=== PATIENT | female | born 1955 | race Caucasian/White ===

== ENCOUNTER 2016-09-10 00:01 | Inpatient (IN) | payer OTHER ==
--- NOTE | ~2016-09-10 | CN ---
Consultation Report [facility] [address] [place]. [address] NAME: ANN MARIE GRIMES : 55 STATUS : ADM Gail PAT#: [id number] AGE: 60 ADM/REG DATE : 09/10/16 MR#: [id number] REPORT SERV DATE: 09/10/16 DICTATED BY: DATE: REPORT STATUS : Draft TRANSCRIBED BY: MODL DATE: 09/10/16 INTERNAL MEDICINE CONSULT DATE OF CONSULTATION: 09/10/2016 The patient is admitted to Dr. Dejon Mcdonald of Orthopedics. He is the requesting physician. Senior Datastage Developer is Dr. Riley Minaya of the Hospitalist Service. REASON FOR CONSULT: "Hematuria and polyuria." HISTORY OF PRESENT ILLNESS: Ms Grimes is a pleasant 60-year-old white female, in excellent health, with no past medical history and essentially minimal past surgical history, who sustained a mechanical fall while walking down her stairs on 09/09/2016 resulting in a right trimalleolar fracture. She is postoperative day #0 from repair. Reportedly, while in preop holding area, was utilizing a bed dubose and the preop nurse noted that her urine may have had a pink discoloration to her. The nurse inquired whether the patient had been on her cycle recently and the patient has not. Thus, a request is made for evaluation of hematuria and polyuria. The patient denies any polyuria presently, although felt several weeks ago that she was having some frequency and felt that she might have had a urinary tract infection at that point in time. She drank copious amounts of water and the frequency resolved at that time. She did not have any dysuria, suprapubic pain, flank pain, fevers, or odor at that time. She reports that she had her annual physical with primary care provider, Dr. Hua Cisneros, afterwards and stated that all of her blood work and a urine sample were normal at that time. Presently, she denies any abdominal pain or dysuria. She has not had any fevers. She has no known history of kidney stones and does not have frequent urinary tract infections. REVIEW OF SYSTEMS: Full 14-point review of systems is negative except as dictated in the history of present illness. PAST MEDICAL HISTORY: None. PAST SURGICAL HISTORY: Includes tubal ligation, tonsillectomy as a child, and trimalleolar fracture repair today. ALLERGIES: NO KNOWN DRUG ALLERGIES. ALTHOUGH SHE AVOIDS SUDAFED BECAUSE IT GIVES HER PALPITATIONS. HOME MEDICATIONS: 1. Acetaminophen 1000 mg p.o. daily as needed for headache. 2. Vitamin C 1000 mg p.o. daily. 3. Aspirin 81 mg p.o. daily-currently held. 4. Zyrtec 10 mg p.o. daily. Consultation Report [address] [place]. [address] NAME: ANN MARIE GRIMES : 55 STATUS : ADM Gail PAT#: [id number] AGE: 60 ADM/REG DATE : 09/10/16 MR#: [id number] REPORT SERV DATE: 09/10/16 DICTATED BY: DATE: REPORT STATUS : Draft TRANSCRIBED BY: TUNG DATE: 09/10/16 5. Vitamin D3 of 1000 units p.o. daily. 6. Multivitamin one tablet p.o. daily. 7. AdvoCare joint supplement three tablets p.o. daily. 8. Topton-3 two caps p.o. daily. 9. Calcium fapy-dts-nadfmnn two tabs p.o. daily. 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 She denies any history of tobacco, alcohol, or illicit substances. FAMILY HISTORY: Pertinent for myocardial infarction in her father at the age of 52, who subsequently lived into his 80s and of complications related to a stroke. Her mother is in good health and still independent. PHYSICAL EXAMINATION: VITAL SIGNS: Temperature 98.3, pulse 82, respirations 18, oxygen saturations 98% on room air, and blood pressure is 133/72. GENERAL: This is a well-developed, well-nourished white female, in no acute distress. Alert and oriented in three dimensions. Her at the bedside. HEENT: Normocephalic, atraumatic. Pupils are equally round and reactive to light. No icterus. No pallor. No sinus tenderness to palpation. No nasal drainage. Oropharynx moist and pink. NECK: Supple with no jugular venous distention. No lymphadenopathy. No bruits. CARDIOVASCULAR: Regular rate and rhythm. No murmurs, rubs or gallops. LUNGS: Clear to auscultation bilaterally. No wheezes, crackles, nor rhonchi. ABDOMEN: Soft, nontender, and nondistended with normoactive bowel sounds in four quadrants. No hepatosplenomegaly. No suprapubic tenderness to palpation. EXTREMITIES: No cyanosis, clubbing, or edema. DATA: CBC from this morning shows white blood cell count of 11, hemoglobin 14.5, hematocrit 42.8, platelets 216. Coagulation studies were normal. Sodium 142, potassium 4.0, chloride 107, bicarb 28, BUN 20, creatinine 1.1, glucose 119, calcium 9.6. IMAGIN. Plain films of the right ankle demonstrated trimalleolar fracture, dislocation of the right ankle. 2. Portable chest x-ray, 09/10/2016, no acute process demonstrated radiographically. IMPRESSION: 1. Observed "pink tinged" urine-question hematuria. 2. Possible polyuria-the patient denies presently, but did experience several weeks ago, with resolution and normal urinalysis since. 3. Leukocytosis. 4. Constipation-the patient is requesting stool softener. PLAN: Consultation Report [address] [address] NAME: ANN MARIE GRIMES : 55 STATUS : ADM Gail PAT#: [id number] AGE: 60 ADM/REG DATE : 09/10/16 MR#: [id number] REPORT SERV DATE: 09/10/16 DICTATED BY: DATE: REPORT STATUS : Draft TRANSCRIBED BY: TUNG DATE: 09/10/16 1. Check urinalysis to rule out UTI. Treat with empiric antibiotics if indicated. 2. Aspirin has been appropriately held postoperatively. 3. Colace and MiraLAX have been prescribed. 4. There is no present indication for imaging-follow up urinalysis results. If a significant amount of hematuria, without leukocytes in the urine, would consider KUB to evaluate for nephrolithiasis versus Outpatient Urology evaluation for cystitis. EMILEE/TUNG Riley Minaya M.D. / [id number] CC: MD Erlin Gutiérrez Jr., M.D.
--- NOTE | ~2016-09-10 | OP ---
Record Of Operation [facility] [address] [place]. [address] NAME: ANN MARIE GRIMES : 55 STATUS : ADM Gail PAT#: [id number] AGE: 60 ADM/REG DATE : 09/10/16 MR#: [id number] REPORT SERV DATE: 09/11/16 DICTATED BY: SINDI SARMIENTO DATE: 09/10/16 REPORT STATUS : Draft TRANSCRIBED BY: MODCastro DATE: 09/10/16 DATE OF PROCEDURE: 09/10/2016 PREOPERATIVE DIAGNOSIS: Right ankle trimalleolar fracture dislocation. POSTOPERATIVE DIAGNOSIS: Right ankle trimalleolar fracture dislocation. PROCEDURE: Open reduction and internal fixation of right ankle trimalleolar fracture. ANESTHESIA: General. COMPLICATIONS: None. LUMBER TYING MACHINE OPERATOR: Abdulaziz, surgical music assistant. INDICATION FOR OPERATION: Ann Marie Grimes is a pleasant 60-year-old female, suffered the above-mentioned injury early in the morning on 09/10/2016, while descending three carpeted steps. Risks and benefits of surgical intervention were discussed at length with the patient. All of her questions were answered. She wished to proceed. Ann Marie was brought back to operating room where sedation was performed and a right sciatic nerve block and popliteal fossa was performed by the surgeon with insulated needle and nerve stimulator. Saphenous nerve block proximal to the incision was performed. Right lower extremity was prepped and draped in the usual sterile fashion. Esmarch exsanguination was utilized and a well-padded thigh tourniquet was inflated. Longitudinal incision was made over the lateral aspect of the distal fibula. Blunt dissection was used to protect local neurovascular structures. Limited subperiosteal dissection was used to expose the fracture. This was a highly unstable fracture. Copious irrigation and aspiration of the hematoma was performed. Next, we chose to open the medial side. An incision was made. Blunt dissection was used to protect local neurovascular structures. Limited subperiosteal dissection was used to expose the medial malleolar fracture. We aspirated and irrigated the hematoma. We opened the joint through the medial side. With the instability that was present, we had excellent visualization of the tibiotalar articular surfaces. She had some scuffing on the medial talar dome. There was small bony and cartilaginous fragments which were removed. The joint was copiously really irrigated multiple times under direct visualization. The posterior malleolar piece appeared relatively small. At the conclusion of the case, we returned to the lateral side where a short oblique fracture was visualized with an anterior butterfly fragment. Due to the comminution, it was not possible to perform lag screw fixation of the main distal fragment. There was a 2nd anterior piece that was attached to the syndesmotic ligaments. This was reduced anatomically and fixed from front to back with a 2.7 mm cortical screw. Next, we chose an Arthrex distal fibular plate. Combination of locking and nonlocking screws were used to secure the plate to the bone. Next, we returned to the medial side where an anatomic reduction of the medial malleolus was performed. Two Arthrex 4.0 mm cannulated screws were placed. Each achieved excellent bone purchase. Final FluoroScan imaging documented AP mortise and lateral views of the ankle. Imaging confirmed acceptable position of the hardware as well as the fractures. Images were printed and Record Of Operation [address] [address] NAME: ANN MARIE GRIMES : 55 STATUS : ADM Gail PAT#: [id number] AGE: 60 ADM/REG DATE : 09/10/16 MR#: [id number] REPORT SERV DATE: 09/11/16 DICTATED BY: SINDI SARMIENTO DATE: 09/10/16 REPORT STATUS : Draft TRANSCRIBED BY: TUNG DATE: 09/10/16 saved. Ankle is stable to stress examination. Copious irrigation was repeated. Deep tissue was closed over the hardware were appropriate with interrupted 2-0 Vicryl suture. Subcutaneous tissues and skin were closed in typical fashion. Bulky sterile dressings were applied. A well-padded posterior splint was placed. The patient did well throughout the case. She awoke in the operating room and was transferred to the recovery room in satisfactory condition. MARYAMB/TUNG Sindi Sarmiento MD / [id number] CC: MD Erlin Gutiérrez Jr., M.D.
--- NOTE | ~2016-09-10 | HP ---
History And Physical [facility] [id number] [place]. [address] NAME: ANN MARIE GRIMES : 55 STATUS : ADM Gail PAT#: [id number] AGE: 60 ADM/REG DATE : 09/10/16 MR#: [id number] REPORT SERV DATE: 09/11/16 DICTATED BY: SINDI SARMIENTO DATE: 09/10/16 REPORT STATUS : Draft TRANSCRIBED BY: MODCastro DATE: 09/10/16 DATE OF ADMISSION: 09/10/2016 CHIEF COMPLAINT: Right ankle fracture dislocation. HISTORY OF PRESENT ILLNESS: I was called by the emergency department to evaluate Ann Marie Grimes. Ann Marie is a pleasant 60-year-old female, who was walking down some steps today where she slipped and fell on the carpet, she suffered the above-mentioned injury. Her made an attempt to reduce the dislocated ankle. She was brought to the emergency room where she was diagnosed with an unstable ankle fracture. She denies associated injuries to include head injury or loss consciousness. She denied injury to her bilateral upper extremities, her left lower extremity. No complaints of back pain or pelvic pain. REVIEW OF SYSTEMS: The patient was in her usual state of health at the time of the evaluation. She denies fevers, chills, nausea, vomiting, abdominal pain, shortness of breath, or chest pain. She did admit to some hematuria and polyuria. PAST MEDICAL HISTORY: None. MEDICATIONS: Tylenol, vitamin C, 81 mg daily aspirin, Zyrtec, vitamin D, joint supplement, omega-3 [id number], and calcium over-the- counter. ALLERGIES: PSEUDOEPHEDRINE. PAST SURGICAL HISTORY: Prior surgeries are tonsillectomy, tubal ligation 1988, and wisdom teeth extraction. SOCIAL HISTORY: She is evaluated with supportive . She denies use of alcohol or tobacco products. PHYSICAL EXAMINATION: GENERAL: Reveals an age-appropriate healthy-appearing female, in mild distress secondary to right ankle discomfort. She is alert and oriented x3. HEENT: Pupils equal to light and reactive. Head atraumatic. CERVICAL SPINE: Nontender to gentle range of motion. CHEST: Nonlabored breathing. HEART: Regular rate. ABDOMEN: Nondistended. EXTREMITIES: Bilateral upper extremities, no tenderness with gentle range of motion. Left lower extremity, no tenderness with gentle range of motion. Right lower extremity has unstable ankle fracture. SKIN: Intact. History And Physical [address] [place]. [address] NAME: ANN MARIE GRIMES : 55 STATUS : ADM Gail PAT#: [id number] AGE: 60 ADM/REG DATE : 09/10/16 MR#: [id number] REPORT SERV DATE: 09/11/16 DICTATED BY: SINDI SARMIENTO DATE: 09/10/16 REPORT STATUS : Draft TRANSCRIBED BY: TUNG DATE: 09/10/16 NEUROVASCULAR: Grossly normal. X-RAYS: Three views of the right ankle show a right trimalleolar ankle fracture dislocation. PLAN: Lengthy discussion with the patient regarding her diagnosis and treatment options. We discussed open reduction and internal fixation with the patient. All of her questions were answered and she wished to proceed. We will proceed with ORIF of the right ankle. We will plan for discharge tomorrow morning (09/11/2016). We will ask the hospitalist to evaluate the patient due to her complaints of polyuria and hematuria. We will discharge her once cleared by Physical Therapy. We will evaluate her tomorrow as well as the hospitalist. Please feel free to call me on my cell phone at [phone] with additional questions or concerns. JUANI/TUNG Sindi Sarmiento MD / [id number] CC: MD Erlin Gutiérrez Jr., M.D.
[2016-09-10] MEDS ORDERED: MULTIVIT/MIN PO (01:00)
[2016-09-10] MEDS ORDERED: VITC500 PO (01:00)
[2016-09-10] MEDS ORDERED: [UNRECOGNIZED DRUG - OTHER] PO (01:00)
[2016-09-10] MEDS ORDERED: ZYRTEC ALLGY10 MG PO (01:01)
[2016-09-10] MEDS ORDERED: ASAB PO (01:01)
[2016-09-10] MEDS ORDERED: VITAMIN D31000 UNIT PO (01:02)
[2016-09-10] MEDS ORDERED: OMEGA-3 OTC PO (01:02)
[2016-09-10] MEDS ORDERED: CALCIUM OTC PO (01:02)
[2016-09-10] MEDS ORDERED: ACET500CAP PO (01:03)
[2016-09-10 01:52] LABS: BASOPHILS 0.4 %; BASOPHILS ABSOLUTE 0.04 10/3/uL (0.0-0.16); EOSINOPHILS 1.2 %; EOSINOPHILS ABSOLUTE 0.13 10/3/uL (0.0-0.53); HEMATOCRIT 42.8 % (36.0-48.0); HEMOGLOBIN 14.5 g/dL (12.0-16.0); IMMATURE GRANULOCYTES 0.3 %; IMMATURE GRANULOCYTES ABSOLUTE 0.03 10/3/uL (0.0-0.11); LYMPHOCYTES 19.1 %; LYMPHOCYTES ABSOLUTE 2.09 10/3/uL (0.67-4.30); MEAN CORPUS HGB CONC 33.9 g/dL (32.0-36.0); MEAN CORPUSCULAR HEMOGLOB 31.2 pg (26.0-34.0); MEAN PLATELET VOLUME 11.5 fL (9.2-13.0); MONOCYTES 5.2 %; MONOCYTES ABSOLUTE 0.57 10/3/uL (0.21-1.20); NEUTROPHILS 73.8 %; NEUTROPHILS ABSOLUTE 8.09 10/3/uL (2.02-8.40); PLATELET COUNT 216 10/3/uL (150-400); RBC DISTRIBUTION WIDTH 12.5 % (12.0-16.0); RED CELL COUNT 4.65 10/6/uL (4.0-5.6)
[2016-09-10 02:02] LABS: PARTIAL THROMBO TIME 27.5 SEC (22.5-37.2); PROTIME (NOT ORD) 13.2 SEC (12.0-14.5)
[2016-09-10 02:04] LABS: ER CBC TAT 0 Hrs 04 MinsNP; MANUAL DIFF NO %
[2016-09-10 02:05] LABS: BUN (BLOOD UREA NITROGEN) 20 MG/DL (6-23); CALCIUM, SERUM 9.6 MG/DL (8.5-10.4); CHLORIDE, SERUM 107 MMOL/L (96-112); CO2 (CARBON DIOXIDE) 28 MMOL/L (24-34); GFR AFRICAN AMERICAN 63 ML/MIN (>=60); GFR NON AFRICAN AMERICAN 55 ML/MIN (>=60); GLUCOSE, SERUM 119 MG/DL (60-99); SODIUM, SERUM 142 MMOL/L (135-148)
[2016-09-10 21:44] LABS: ASCORBIC ACID (UR NOT ORDER) NEG (NEG); BILIRUBIN, URINE NEGATIVE (NEG); KETONE, URINE 20 MG/DL (NEG); LEUKOCYTE ESTERASE(NOT OR LARGE (NEG); WBC (NOT ORDERED) (RFLEX) 52 (0-5)
[2016-09-11 06:33] LABS: BASOPHILS 0.1 %; BASOPHILS ABSOLUTE 0.01 10/3/uL (0.0-0.16); EOSINOPHILS 0 %; HEMOGLOBIN 12.4 g/dL (12.0-16.0); IMMATURE GRANULOCYTES 0.3 %; IMMATURE GRANULOCYTES ABSOLUTE 0.03 10/3/uL (0.0-0.11); LYMPHOCYTES 19.5 %; LYMPHOCYTES ABSOLUTE 2.21 10/3/uL (0.67-4.30); MEAN CORPUS HGB CONC 33.2 g/dL (32.0-36.0); MEAN CORPUSCULAR HEMOGLOB 30.8 pg (26.0-34.0); MEAN PLATELET VOLUME 11.9 fL (9.2-13.0); MONOCYTES 11.7 %; MONOCYTES ABSOLUTE 1.33 10/3/uL (0.21-1.20); NEUTROPHILS 68.4 %; NEUTROPHILS ABSOLUTE 7.77 10/3/uL (2.02-8.40); PLATELET COUNT 197 10/3/uL (150-400); RBC DISTRIBUTION WIDTH 12.8 % (12.0-16.0); RED CELL COUNT 4.02 10/6/uL (4.0-5.6); WHITE BLOOD CELLS 11.4 10/3/uL (4.5-10.5)
[2016-09-11 06:40] LABS: HEMATOCRIT 37.4 % (36.0-48.0); MANUAL DIFF NO %
[2016-09-11 06:44] LABS: BUN (BLOOD UREA NITROGEN) 9 MG/DL (6-23); CALCIUM, SERUM 8.9 MG/DL (8.5-10.4); CHLORIDE, SERUM 108 MMOL/L (96-112); CO2 (CARBON DIOXIDE) 27 MMOL/L (24-34); CREATININE 0.81 MG/DL (0.55-1.02); GFR AFRICAN AMERICAN 91 ML/MIN (>=60); GFR NON AFRICAN AMERICAN 79 ML/MIN (>=60); GLUCOSE, SERUM 135 MG/DL (60-99); POTASSIUM, SERUM 4.2 MMOL/L (3.5-5.3); SODIUM, SERUM 137 MMOL/L (135-148)
[2016-09-11] MEDS ORDERED: PCET PO (09:29)
[2016-09-11] MEDS ORDERED: PR25 PO (09:29)
[2016-09-11] MEDS ORDERED: ASAEC PO (09:29)
[2016-09-11] MEDS ORDERED: SEPTRA DS1 TAB PO (09:30)
== END 2016-09-11 12:48 | disposition home or self-care (01) | DRG 493 ==
LOC: ER 00:01 → 3SO 01:32
PROVIDERS: Hospitalist; Orthopaedic Surgery Foot and Ankle Surgery; Specialist
PROC: 0QHG04Z Insertion of Internal Fixation Device into Right Tibia, Open Approach (ICD-10-PCS; 2016-09-10)
PROC: 0QHG04Z Insertion of Internal Fixation Device into Right Tibia, Open Approach (ICD-10-PCS; 2016-09-10)
PROC: 0QHJ04Z Insertion of Internal Fixation Device into Right Fibula, Open Approach (ICD-10-PCS; principal; 2016-09-10 13:45)
DX: S82.851A Displaced trimalleolar fracture of right lower leg, initial encounter for closed fracture (principal); N39.0 Urinary tract infection, site not specified; W10.8XXA Fall (on) (from) other stairs and steps, initial encounter; Y92.018 Other place in single-family (private) house as the place of occurrence of the external cause; Z79.82 Long term (current) use of aspirin; Z88.8 Allergy status to other drugs, medicaments and biological substances; Z82.49 Family history of ischemic heart disease and other diseases of the circulatory system; Z82.2 Family history of deafness and hearing loss; K59.00 Constipation, unspecified
CPT/HCPCS: 71010; 73610-RT; 76000; 80048; 81001; 83735; 85025; 85610; 85730; 87086; 96374; 97116-GP; 97161-GP; 97165-GO; 97166-GO; 99285; A9270-GY; C1713; J0690; J1170; J2250; J2405; J3010